=== PATIENT | male | born 1990 | race Caucasian/White ===

== ENCOUNTER 2018-01-18 14:12 | Emergency (ER) | payer OTHER ==
[~2018-01-18] VITALS: Ht 182.9 cm; Wt 83.9 kg
[~2018-01-18 14:12] MED LIST: PRD20T PO; SULF1TAB38 PO
[2018-01-18] MEDS ORDERED: diphenhydrAMINE 25 MG TAB (BENADRYL) PO ONE (14:45)
[2018-01-18] MEDS ORDERED: PRD20T PO (15:27)
--- NOTE | 2018-01-18 15:28 | ED Integumentary General ---
General Chief Complaint: Allergic Reaction Stated Complaint: RASH Nursing Triage Note: PT REPORTS R ARM WELT/RASH STARTING 2 DAYS AGO THAT HAS PROGRESSIVELY GOTTEN WORSE AND SPREAD TODAY. PT DENIES SOA/THROAT SWELLING. History of Present Illness Date Seen by Provider: Jan 18, 2018 Time Seen by Provider: 14:45 Initial Comments 27-year-old male reports rash to his right forearm and wrist. He reports since September he has been having rashes or. Various locations and then disappear within a week to 2 weeks of treatment with hydrocortisone. He denies any recent changes in his detergents, eating habits, soaps or lotions. He has been using a new cologne over the last week or 2, the rash was present prior to that. He's had no previous history of skin disorders. He is possibly sensitive to wheat and dairy products. Timing/Duration: intermittent Severity: mild Location: extremities (right upper) Possible Cause: no cause identified Modifying Factors: improves with antihistamine Associated Symptoms: denies symptoms Allergies and Home Medications Allergies Coded Allergies: No Known Drug Allergies (Unverified , 06/19/11) Home Medications Prednisone 20 Mg Tab, 40 MG PO DAILY Prescribed by: ELIDIA VEGA on 06/19/11 1611 Prednisone 20 Mg Tab, 20 MG PO DAILY Prescribed by: INEZ MOSLEY on 01/18/18 1527 Trimethoprim/Sulfamethoxazole 1 Ea Tablet, 1 EA PO BID FOR INFECTION Prescribed by: ELIDIA VEGA on 06/19/11 1611 Patient Home Medication List Home Medication List Reviewed: Yes Constitutional: no symptoms reported, see HPI Skin: see HPI, pruritus, rash All Other Systems Reviewed Negative Unless Noted: Yes Past Iursgba-Sqqahr-Okcyej Hx Patient Social History Alcohol Use: Occasionally Uses Recreational Drug Use: No Smoking Status: Never a Smoker Recent Foreign Travel: No Contact w/Someone Who Travel: No Recent Infectious Disease Expo: No Physical Abuse: No Sexual Abuse: No Mistreated: No Fear: No Surgeries History of Surgeries: No Respiratory History of Respiratory Disorde: No Cardiovascular History of Cardiac Disorders: No Neurological History of Neurological Disord: No Genitourinary History of Genitourinary Disor: No Gastrointestinal History of Gastrointestinal Di: No Musculoskeletal History of Musculoskeletal Dis: No HEENT History of HEENT Disorders: No Cancer History of Cancer: No Psychosocial History of Psychiatric Problem: No Suicide Risk Score: 0 Integumentary History of Skin or Integumenta: No Blood Transfusions History of Blood Disorders: No Reviewed Nursing Assessment Reviewed/Agree w Nursing PMH: Yes Physical Exam Vital Signs Vital Signs - First Documented 01/18/18 14:34 Temp 97.0 Pulse 68 Resp 20 B/P (MAP) 109/64 (79) Pulse Ox 98 Capillary Refill : Less Than 3 Seconds General Appearance: WD/WN, no apparent distress HEENT: PERRL/EOMI, normal ENT inspection, TMs normal, pharynx normal Neck: non-tender, full range of motion, supple, normal inspection, No lymphadenopathy (R), No lymphadenopathy (L) Cardiovascular: normal peripheral pulses, regular rate, rhythm, no murmur Respiratory: chest non-tender, lungs clear, normal breath sounds Gastrointestinal: normal bowel sounds, non tender, soft Neurologic/Psychiatric: no motor/sensory deficits, alert, normal mood/affect, oriented x 3 Skin: normal color, warm/dry Skin Problem Location: upper extremities (right) Skin Problem Character: patchy, rash, scales, urticarial Lymphatic: no adenopathy Progress/Results/Core Measures Results/Orders My Orders Orders - INEZ MOSLEY Diphenhydramine Tablet (Benadryl Tablet) (01/18/18 14:45) Medications Given in ED Current Medications Medications Dose Ordered Sig/Neymar Route Start Time Stop Time Status Last Admin Dose Admin Diphenhydramine HCl 50 mg ONCE ONCE PO 01/18/18 14:45 01/18/18 14:46 DC 01/18/18 14:48 50 MG Vital Signs/I&O Vital Sign - Last 12Hours 01/18/18 14:34 Temp 97.0 Pulse 68 Resp 20 B/P (MAP) 109/64 (79) Pulse Ox 98 Blood Pressure Mean: 79 Departure Impression Impression: Primary Impression: Atopic dermatitis Qualified Codes: L20.9 - Atopic dermatitis, unspecified Disposition: 01 HOME, SELF-CARE Condition: Stable Departure-Patient Inst. Decision time for Depature: 15:15 Referrals: NO,LOCAL PHYSICIAN (PCP/Family) Primary Care Physician Patient Instructions: Eczema (Atopic Dermatitis) (DC), Skin Rash (DC) Add. Discharge Instructions: Continue applying hydrocortisone cream to affected areas 3 times daily. May use Benadryl 25 mg up to every 8 hours, for itching or rash. Take prednisone as ordered. [facility] if symptoms are not improving. Return to emergency department for difficulty breathing, swelling of the tongue or lips, new problems or concerns. All discharge instructions reviewed with patient and/or family. Voiced understanding. Scripts Prednisone (Prednisone) 20 Mg Tab 20 MG PO DAILY, #5 TAB 0 Refills Prov: INEZ MOSLEY 01/18/18 Copy Copies To 1: GUERITA RILEY MD, AMY ARNP Jan 18, 2018 15:27
[2018-01-18 15:38] VITALS: BP 123/78
--- OUTSIDE RECORDS SUMMARY | 2018-01-19 09:49 | XMS REPORT ---
Author Author Juan Grant [facility] Address [address] [place], [place] [id number] Care Team Providers Care Impress Associate Name Role Phone Juan Grant PCP Allergies and Adverse Reactions Name Reaction Notes NO KNOWN DRUG ALLERGIES Plan of Treatment Not available. Medications Active Name Start Date Estimated Completion Date SIG Comments pseudoephedrine HCl 60 mg oral tablet 10/25/2015 take 1 tablet (60 mg) by oral route every 6 hours as needed Problem List Description Status Onset *No known medical problems Active Vital Signs Date Time BP-Sys(mm[Hg] BP-Jazmine(mm[Hg]) HR(bpm) RR(rpm) Temp WT HT HC BMI BSA BMI Percentile O2 Sat(%) 10/25/2015 3:23:00 PM 108 mmHg 60 mmHg 64 bpm 16 rpm 97.5 F 184 lbs 72 in 24.95 kg/m2 2.06 m2 97 % 10/13/2015 2:04:00 PM 124 mmHg 66 mmHg 68 bpm 18 rpm 97.1 F 186.125 lbs 72 in 25.2428 kg/m 2.0709 m 96 % Social History Name Description Comments Alcohol Use - Occasional Tobacco Never smoker Single College attendee Exercises regularly History of Procedures Date Ordered Description Order Status 10/13/2015 12:00 AM HEP B VACC ADULT 3 DOSE IM Reviewed 10/13/2015 12:00 AM THER/PROPH/DIAG INJ SC/IM Reviewed 10/13/2015 12:00 AM PARTICLE AGGLUT ANTBDY SCRN Returned Results Summary Data and Description Results 10/13/2015 4:15 PM Varicella Zoster IgG 749.0 Index History Of Immunizations Name Date Admin Mfg Name Mfg Code Trade Name Lot# Route Inj Vis Given Vis Pub CVX HepB Adult 10/13/2015 [employer] MSD Recombivax Adult [id number] Intramuscular Right Deltoid 10/13/2015 12/12/2011 43 History of Past Illness Name Date of Onset Comments *No known medical problems wrist fracture Ankle fracture, left Physical exam, annual Oct 13 2015 2:07PM Immunity status testing Oct 13 2015 2:07PM Eustachian tube dysfunction, bilateral Oct 25 2015 3:24PM Payers Insurance Name Company Name Plan Name Plan Number Policy Number Policy Group Number Start Date [employer] [facility] [id number] N/A History of Encounters Visit Date Visit Type Provider 10/25/2015 Office visit Juan Grant APRN 10/13/[address] Daysi Martinez DO
--- OUTSIDE RECORDS SUMMARY | 2018-01-19 09:49 | XMS REPORT | Continuity of Care Document ---
Demographics Preferred Language Unknown Marital Status Unknown Islam Affiliation Unknown Race Unknown Ethnic Group Unknown Author Author [facility] Address Unknown Phone Unavailable Allergies There is no data. Medications There is no data. Problems Date Dx Coded Attending Type Code Diagnosis Diagnosed By 09/10/2012 719.47 ANKLE PAIN 09/10/2012 845.00 SPRAIN/ STRAIN ANKLE 09/10/2012 719.47 ANKLE PAIN 09/10/2012 845.00 SPRAIN/ STRAIN ANKLE 11/17/2012 V74.1 TB SCREENING Procedures Code [place] [address] XRAY ANKLE R, 2 VIEWS 09/10/2012 25338 TB TEST INTRADERMAL 11/17/2012 Results There is no data. Encounters ACCT No. Visit Date/Time Discharge Status Pt. Type Provider Facility Loc./Unit Complaint [id number] 11/17/2012 16:26:00 11/17/2012 23:59:59 CLS Outpatient [id number] 09/10/2012 15:43:00 09/10/2012 23:59:59 CLS Outpatient [id number] 12/16/2017 17:18:54 12/16/2017 23:59:59 CLS Outpatient Juan Grant [id number] 10/19/2017 16:24:26 10/19/2017 23:59:59 CLS Outpatient Winigan Puja Nia [id number] 10/25/2015 16:15:48 10/25/2015 23:59:59 CLS Outpatient Juan Grant [id number] 10/13/2015 14:59:15 10/13/2015 23:59:59 CLS Outpatient Daysi Martinez
--- OUTSIDE RECORDS SUMMARY | 2018-01-19 09:49 | XMS REPORT ---
Author Author Puja Sandra [facility] Address [address] [place], [place] [phone] Care Team Providers Care Checkman Name Role Phone Puja Sandra PCP Allergies and Adverse Reactions Name Reaction Notes NO KNOWN DRUG ALLERGIES Plan of Treatment Not available. Medications Active Name Start Date Estimated Completion Date SIG Comments cephalexin 500 mg oral capsule 10/19/2017 take 1 capsule (500 mg) by oral route every 12 hours for 10 days Name Start Date Expiration Date SIG Comments pseudoephedrine HCl 60 mg oral tablet 10/25/2015 take 1 tablet (60 mg) by oral route every 6 hours as needed Problem List Description Status Onset *No known medical problems Active Vital Signs Date Time BP-Sys(mm[Hg] BP-Jazmine(mm[Hg]) HR(bpm) RR(rpm) Temp WT HT HC BMI BSA BMI Percentile O2 Sat(%) 10/19/2017 3:48:00 PM 138 mmHg 78 mmHg 63 bpm 18 rpm 98.8 F 186 lbs 72 in 25.23 kg/m2 2.07 m2 95 % 10/25/2015 3:23:00 PM 108 mmHg 60 mmHg 64 bpm 16 rpm 97.5 F 184 lbs 72 in 24.9546 kg/m 2.0591 m 97 % 10/13/2015 2:04:00 PM 124 mmHg 66 mmHg 68 bpm 18 rpm 97.1 F 186.125 lbs 72 in 25.24 kg/m2 2.07 m2 96 % Social History Name Description Comments Alcohol Use - Occasional Tobacco Never smoker Single College attendee Exercises regularly History of Procedures Date Ordered Description Order Status 10/13/2015 12:00 AM HEP B VACC ADULT 3 DOSE IM Reviewed 10/13/2015 12:00 AM THER/PROPH/DIAG INJ SC/IM Reviewed 10/13/2015 12:00 AM PARTICLE AGGLUT ANTBDY SCRN Reviewed Results Summary Date and Description Results 10/13/2015 4:15 PM Varicella Zoster IgG 749.0 Index History Of Immunizations Name Date Admin Mfg Name Mfg Code Trade Name Lot# Route Inj Vis Given Vis Pub CVX HepB Adult 10/13/2015 [employer] MSD Recombivax Adult [id number] Intramuscular Right Deltoid 10/13/2015 12/12/2011 43 History of Past Illness Name Date of Onset Comments *No known medical problems wrist fracture Ankle fracture, left Physical exam, annual Oct 13 2015 2:07PM Immunity status testing Oct 13 2015 2:07PM Eustachian tube dysfunction, bilateral Oct 25 2015 3:24PM Cellulitis of right upper extremity Oct 19 2017 3:52PM Payers Insurance Name Company Name Plan Name Plan Number Policy Number Policy Group Number Start Date [facility] [id number] N/A History of Encounters Visit Date Visit Type Provider 10/19/2017 Office visit Puja Sandra APRN 10/25/2015 Office visit Juan Grant APRN 10/13/[address] Daysi Martinez DO
--- OUTSIDE RECORDS SUMMARY | 2018-01-19 09:49 | XMS REPORT ---
Author Author Juan Grant [facility] Address [address] [place], [place] [phone] Care Team Providers Care Server Administrator Name Role Phone Juan Grant PCP Allergies [...] [employer] MSD Recombivax Adult [id number] Intramuscular Right Deltoid 10/13/2015 12/12/2011 43 History of Past Illness Name Date of Onset Comments *No known medical problems wrist fracture Ankle fracture, left Physical exam, annual Oct 13 2015 2:07PM Immunity status testing Oct 13 2015 2:07PM Eustachian tube dysfunction, bilateral Oct 25 2015 3:24PM Payers Insurance Name Company Name Plan Name Plan Number Policy Number Policy Group Number Start Date [employer]BS [facility] [id number] N/A History of Encounters Visit Date Visit Type Provider 10/25/2015 Office visit Juan Grant APRN 10/13/[address] Daysi Martinez DO
--- OUTSIDE RECORDS SUMMARY | 2018-01-19 09:49 | XMS REPORT ---
Author Author Juan Grant [facility] Address [address] [place], [place] [phone] Care Team Providers Care Patent Counsel Name Role Phone Juan Grant PCP Allergies [...] [employer] MSD Recombivax Adult [id number] Intramuscular Right Deltoid 10/13/2015 12/12/2011 43 History of Past Illness Name Date of Onset Comments *No known medical problems wrist fracture Ankle fracture, left Physical exam, annual Oct 13 2015 2:07PM Immunity status testing Oct 13 2015 2:07PM Eustachian tube dysfunction, bilateral Oct 25 2015 3:24PM Payers Insurance Name Company Name Plan Name Plan Number Policy Number Policy Group Number Start Date [facility] [id number] N/A History of Encounters Visit Date Visit Type Provider 10/25/2015 Office visit Juan Grant APRN 10/13/[address] Daysi Martinez DO
--- OUTSIDE RECORDS SUMMARY | 2018-01-19 09:49 | XMS REPORT ---
Author Author Juan Grant Organization [facility] Address [address] [place], [place] [phone] Care Team Providers Care Butt Maker Name Role Phone Juan Grant PCP Juan Grant PreferredProvider Allergies and Adverse Reactions Name Reaction Notes [...] HC BMI BSA BMI Percentile O2 Sat(%) 12/16/2017 2:54:00 PM 120 mmHg 70 mmHg 57 bpm 16 rpm 190 lbs 72 in 25.77 kg/m2 2.09 m2 98 % 10/19/2017 3:48:00 PM 138 mmHg 78 mmHg 63 bpm 18 rpm 98.8 F 186 lbs 72 in 25.2259 kg/m 2.0702 m 95 % 10/25/2015 3:23:00 PM 108 mmHg [...] 12:00 AM PARTICLE AGGLUT ANTBDY SCRN Reviewed 12/16/2017 12:00 AM ALLERGEN SPECIFIC IGE Returned 12/16/2017 12:00 AM Tick Panel Returned Results Summary Date and Description Results 10/13/2015 4:15 PM Varicella Zoster IgG 749.0 Index History Of Immunizations Name Date Admin Mfg Name Mfg Code Trade Name Lot# Route Inj Vis Given Vis Pub CVX HepB Adult 10/13/2015 [employer] MSD Recombivax Adult [id number] Intramuscular Right Deltoid 10/13/2015 12/12/2011 43 History of Past Illness Name Date of Onset Comments *No known medical problems wrist fracture Ankle fracture, left Physical exam, annual Oct 13 2015 2:07PM Immunity status testing Oct 13 2015 2:07PM Eustachian tube dysfunction, bilateral Oct 25 2015 3:24PM Cellulitis of right upper extremity Oct 19 2017 3:52PM Urticaria Dec 16 2017 2:55PM Payers Insurance Name Company Name Plan Name Plan Number Policy Number Policy Group Number Start Date Change [id number] [employer] Benefit [employer]! [id number] N/A BCBS [facility] [id number] N/A History of Encounters Visit Date Visit Type Provider 12/16/2017 Office visit Juan Grant APRN 10/19/2017 Office visit Puja Sandra APRN 10/25/2015 Office visit Juan Grant APRN 10/13/[address] Daysi Martinez DO
== END 2018-01-18 15:38 | disposition home or self-care (01) ==
LOC: EDUNIT# 14:12 → ER 14:15
DX: L20.9 Atopic dermatitis, unspecified (principal); Z79.52 Long term (current) use of systemic steroids
CPT/HCPCS: 99283